=== PATIENT | male | born 1970 | race Caucasian/White ===

== ENCOUNTER → 2019-06-22 16:40 | Outpatient (CLI) | payer OTHER, SELFPAY ==
--- NOTE | ~2019-06-22 | XR_ITS ---
EXAMINATION: XR chest 2V EXAM DATE: 06/22/2019 17:03 INDICATION: Cough. TECHNIQUE: Frontal and lateral projections of the chest obtained and reviewed. Comparison is made to prior examination from 09/04/2011. FINDINGS: Moderate chronic hyperinflation. The lungs are clear. There are no pleural effusions. Th e cardiomediastinal silhouette is within normal limits. There is no pneumothorax suspected. There a re mild bony degenerative changes. Left clavicular fusion hardware. IMPRESSION: 1. No acute cardiopulmonary findings. 2. Hyperinflation. Reviewed, dictated and finalized at location A. UITING ASSISTANT
--- NOTE | ~2019-06-22 | XR_ITS ---
EXAMINATION: XR cervical spine 4-5V EXAM DATE: 06/22/2019 17:03 INDICATION: Cervical radiculopathy. TECHNIQUE: Cervical spine lateral and frontal projections. Cervicothoracic lateral projection, mouth odontoid projection. There is no prior study for comparison. FINDINGS: There is moderate disc disease C5-6 and 6-7, mild at C4-5 and C7-T1. Probably moderate lef t neural foraminal stenosis at C6-7, mild to moderate stenosis at the other C5-6 and 6-7 neural abiodun en. Mild cervical facet arthropathy. There is mild reversal of the normal cervical lordosis which may be positional or spasm. Left clavicular and mandibular fusion hardware. Lung apices are unremarkabl e. Prevertebral soft tissue and pre-dens space are within normal limits. IMPRESSION: 1. C5-6 and 6-7 moderate disc disease and some neural foraminal stenosis. 2. Reversal of normal cervical lordosis. Reviewed, dictated and finalized at location A. ICULTURAL SERVICES LIBRARIAN
== END ==
PROVIDERS: PCP Emergency Medicine; Visit Provider Emergency Medicine
DX: M50.323 Other cervical disc degeneration at C6-C7 level (principal); R05 Cough; R91.8 Other nonspecific abnormal finding of lung field
CPT/HCPCS: 71046; 72050

== ENCOUNTER 2019-08-09 09:59 | Outpatient (CLI) | payer OTHER, SELFPAY ==
--- NOTE | ~2019-08-09 | CT_ITS ---
EXAMINATION: CT lung screening DATE: 08/09/2019 10:33 INDICATION: Tobacco use, current smoker with 30 pack year history TECHNIQUE: Computed tomography (CT) of the chest was performed without intravenous contrast. The dose -length product (DLP) was 67.80 mGy-cm. Automated exposure control and iterative reconstruction techn ique were employed. COMPARISON: None FINDINGS: There is mild emphysema. There are multiple nodules of the left lower lobe which measure up to 7 mm and demonstrate an appearance favoring infection/inflammation. There is no pleural effusion or pneumothorax. The heart size is normal. There are no pathologically enlarged thoracic lymph nodes. Internal stabilization hardware is present in the right mandible and left clavicle. IMPRESSION: 1. Lung-RADS category 3: Probably benign. Followup with noncontrast low-dose chest CT in 6 months is recommended. Reviewed, dictated and finalized at location A. IMPRESSION: 1. Lung-RADS category 3: Probably benign. Followup with noncontrast low-dose ch est CT in 6 months is recommended.
== END 2019-08-09 10:00 | disposition home or self-care (01) ==
LOC: ANHIMG 10:03
PROVIDERS: PCP Emergency Medicine; Visit Provider Emergency Medicine
DX: Z12.2 Encounter for screening for malignant neoplasm of respiratory organs (principal); Z72.0 Tobacco use
CPT/HCPCS: G0297

== ENCOUNTER 2020-05-02 06:51 | Outpatient (NON) | payer SELFPAY ==
[2020-05-03 18:18] LABS: SARS-CoV-2 RNA PCR Negative
== END 2020-05-02 06:52 ==
PROVIDERS: PCP Emergency Medicine; Visit Provider Emergency Medicine
DX: R05 Cough (principal); Z20.822 Contact with and (suspected) exposure to COVID-19
CPT/HCPCS: C9803; U0003; U0005

== ENCOUNTER 2020-07-18 08:14 | Outpatient (CLI) | payer OTHER, SELFPAY ==
--- NOTE | ~2020-07-18 | CT_ITS ---
EXAMINATION: CT diagnostic chest wo con EXAM DATE: 07/18/2020 08:33 INDICATION: Lung nodule. TECHNIQUE: Spiral CT of the chest without contrast. Axial, coronal and sagittal images were reviewe d. Coronal maximum intensity pixel images of chest reviewed. The dose-length product (DLP) for this examination was 68.21 mGy-cm. The exposure was tailored according to patient size (auto mA exposure control), and iterative reconstruction (ASIR) was used as additional dose reduction technique. Benjamin rison is made to prior examination from 08/09/2019 . FINDINGS: Previously seen left lower lobe nodules have nearly resolved, nonspecific pneumonitis. The re are some scattered small cystic spaces, likely in locations of prior episodes of this. Small amoun t of new right basilar linear opacity likely atelectasis. There is mild emphysema and moderate hyperi nflation. There are no pleural or pericardial effusions. Tracheobronchial tree is patent with mild diffuse wall thickening most likely chronic bronchitis. There is no mediastinal, hilar or axillary lymphadenopathy. There is no pneumothorax. Narrow cardiac size from hyperinflated lungs. No evid ence of coronary arterial calcification. Upper abdomen is unremarkable. There is thoracic spondylo sis without osteoblastic or osteolytic lesions identified. Left clavicular plate. IMPRESSION: 1. Near resolution of previously seen left basilar nodules, nonspecific pneumonitis. 2. Moderate hyperinflation. Mild emphysema. 3. Diffuse mild bronchial wall thickening, chronic bronchitis. Reviewed, dictated and finalized at location A. IMPRESSION: 1. Near resolution of previously seen left basilar nodules, nonspecific pneumo nitis. 2. Moderate hyperinflation. Mild emphysema. 3. Diffuse mild bronchial wall thickening, chronic bronchitis.
== END 2020-07-18 08:15 | disposition home or self-care (01) ==
PROVIDERS: PCP Emergency Medicine; Visit Provider Emergency Medicine
DX: R91.1 Solitary pulmonary nodule (principal); M47.814 Spondylosis without myelopathy or radiculopathy, thoracic region; J43.9 Emphysema, unspecified
CPT/HCPCS: 71250

== ENCOUNTER 2023-08-15 12:22 | Emergency (ER) | payer OTHER, SELFPAY ==
[2023-08-15 12:53] VITALS: BP 133/79; PULSE 75; RESP 18; TEMP 36.9; O2SAT 98
--- NOTE | 2023-08-15 13:38 | ED.SKABFB ---
HPI - Skin/Abscess/Foreign Bdy General Chief complaint: Skin/Abscess/Foreign Body Stated complaint: Right Armpit Bump Time Seen by Provider: 08/15/23 13:38 Source: patient Mode of arrival: ambulatory Limitations: no limitations History of Present Illness HPI narrative: 58-year-old male presents with abscess to right axilla for 4-5 days. Patient reports difficulty sleeping at night due to pain to right axilla. Afebrile. No history of similar abscess. All systems reviewed and negative except as noted above. Related Data Allergies Allergy/AdvReac Type Severity Reaction Status Date / Time No Known Allergies Allergy Verified 08/15/23 12:26 Review of Systems Review of Systems: CONSTITUTIONAL: Denies fever, chills, or sweats. EYES: Denies visual changes, redness, or discharge. ENT: Denies rhinorrhea, congestion, sore throat, or otalgia. CARDIOVASCULAR: Denies chest pain, palpitations, or edema. RESPIRATORY: Denies cough or dyspnea. GASTROINTESTINAL: Denies abdominal pain, nausea, vomiting, or diarrhea. GENITOURINARY: Denies dysuria or hematuria. SKIN: Denies rash or itching. Reports pain, erythema, swelling to right axilla. MUSCULOSKELETAL: Denies back pain, joint pain, or myalgia. NEUROLOGIC: Denies headache, numbness, or weakness. PSYCHIATRIC: Denies anxiety or depression. All other systems reviewed are negative, except as documented in HPI. PMFSH Comments At time of signature, agree with nursing past medical, surgical, social and family history. There is no relevant family history pertinent to the presenting complaint. Exam Narrative: GENERAL: This is a well-nourished, well-developed patient, in no apparent distress. HEAD: normocephalic, atraumatic. EYES: PERRL. Sclera clear/white. Vision is grossly intact. EARS: External ears normal NOSE: External nose normal NECK: Neck supple, non-tender without lymphadenopathy, masses or thyromegaly. CARDIOVASCULAR: Regular rate and rhythm without murmurs, gallops, or rubs. RESPIRATORY: Clear to auscultation. Breath sounds equal bilaterally. No wheezes, rales, or rhonchi. SKIN: warm, Dry, intact with no suspicious lesions or rash, good texture and turgor. 2 cm diameter abscess to right axilla, fluctuant, tender on palpation. NEURO: awake, alert, and oriented to person, place and time. There were no obvious focal neurologic abnormalities. EXTREMITIES: No joint tenderness, effusion, or edema noted. Course Course Level of Care: Express Care Visit Vital Signs Vital signs: Vital Signs Temperature 36.9 C 08/15/23 12:53 Pulse Rate 75 08/15/23 12:53 Respiratory Rate 18 08/15/23 12:53 Blood Pressure 133/79 08/15/23 12:53 Pulse Oximetry 98 08/15/23 12:53 Oxygen Delivery Room Air 08/15/23 12:53 Temperature 36.9 C 08/15/23 12:53 Pulse Rate 75 08/15/23 12:53 Respiratory Rate 18 08/15/23 12:53 Blood Pressure 133/79 08/15/23 12:53 Pulse Oximetry 98 08/15/23 12:53 Oxygen Delivery Room Air 08/15/23 12:53 Procedures Abscess I/D upper extremity: Date of Incision: 08/15/23 Time of Incision: 13:45 Side (if applicable): right (axilla) Local Anesthetic: lidocaine 2% Amount of anesthesia used (mL): 6 Technique: incised with #11 blade Irrigation: No Packing used?: none I&D Results: Pus and Blood Complications: pain MDM - Skin/Abscess/Foreign Bdy MDM Narrative Medical decision making narrative: Patient is aware of diagnosis, understands and agrees to treatment plan. Anticipatory guidance given. Patient agrees to follow-up as directed and is aware of reasons to seek care at the emergency department. Portions of this record may have been created with voice recognition software Differential Diagnosis Differential diagnosis: Likely abscess of skin or subcutaneous tissue Discharge Plan Discharge Clinical Impression: Abscess of axilla, right Patient Disp
[2023-08-15] MEDS: LIDOCAINE HCL 2% PF INJ 5 ML VIAL 6 ML INFILTRATE (13:47)
== END 2023-08-15 14:00 | disposition home or self-care (01) ==
PROVIDERS: Emergency Provider Nurse Practitioner Family; PCP Emergency Medicine
DX: L02.411 Cutaneous abscess of right axilla (principal); J44.9 Chronic obstructive pulmonary disease, unspecified; Z86.73 Personal history of transient ischemic attack (TIA), and cerebral infarction without residual deficits
CPT/HCPCS: 10060; 99213; G0463

== ENCOUNTER 2023-11-14 15:03 | Emergency (ER) | payer OTHER, SELFPAY ==
--- NOTE | ~2023-11-14 | XR_ITS ---
EXAMINATION: XR chest 2V 11/14/2023 15:29 INDICATION: Shortness of breath and wheezing PROCEDURE: 2 view chest COMPARISON: No prior studies for comparison. FINDINGS: The lungs are clear. The cardiomediastinal silhouette is within normal limits. There are no pleural effusions. There is no pneumothorax suspected. IMPRESSION: 1: NO ACUTE CARDIOPULMONARY DISEASE. Reviewed, dictated and finalized at location B.
--- NOTE | 2023-11-14 15:05 | ED.URI ---
HPI - URI/Sore Throat General Chief Complaint: Upper Respiratory Infection Stated Complaint: Sinus infection hx:COPD Time Seen by Provider: 11/14/23 15:05 Source: patient Mode of arrival: ambulatory Limitations: no limitations History of Present Illness HPI Narrative: Edison is a 58-year-old male with a history of who presents to the clinic today with complaints of shortness of breath and a productive cough x2 weeks. He is has a Symbicort inhaler but he admits he has not used in a while. He relates he has a productive cough with green sputum. He states he called his PCP who referred him to the urgent care to get a breathing treatment. He denies any fever/chills or chest pain. MD elicited complaint: cough and other (Shortness of breath) Related Data Home Medications Medication Instructions Recorded Confirmed albuterol sulfate 90 mcg/actuation See Rx Instructions .Route .COMPLEX 11/14/23 11/14/23 aerosol inhaler (Ventolin HFA) Allergies Allergy/AdvReac Type Severity Reaction Status Date / Time No Known Allergies Allergy Verified 11/14/23 15:13 Review of Systems Review of Systems: Pertinent positives per HPI. Patient denies any fever, chills, rash, headache, visual changes, dizziness, chest pain, palpitations, nausea, vomiting, diarrhea, constipation, abdominal pain, or any urinary issues. [facility] Social History Social History (Updated 11/14/23 @ 15:23 by Jamil Augustine APRN) Smoking packs per day: 0.5 Smoking cigarettes per day: 10.0 Years smoked: 45 Smoking pack-years: 22.50 Smoking status: Current every day smoker Comments At the time of my signature, I reviewed and agree with the nursing past medical, surgical, social, and family history. There is no relevant family history pertinent to the patient complaint. Exam Narrative: General: Well-developed, well nourished, in no apparent distress Head: Normocephalic, atraumatic Eyes: Pupils equally round and reactive to light bilaterally, EOM intact, sclera and conjunctive clear, no discharge, lids normal Neck: Supple, trachea midline, no enlargement of anterior or posterior cervical nodes, no thyroid masses or goiter palpable. Cardio: Regular rate and rhythm, s1 and s2 normal, no murmur appreciated. Resp: Labored breathing, dyspnea at rest and on exertion, ronchi and inspiratory wheezes on auscultation Course Course Emergency Course: Portions of this record may have been created with voice recognition software. Level of Care: Express Care Visit Vital Signs Vital signs: Vital signs reviewed MDM - URI/Sore Throat MDM Narrative Medical decision making narrative: At the time of visit patient is resting comfortably on the exam table. Patient appears to be nontoxic. Diagnostics: Chest x-ray was negative for acute findings in the clinic today. Plan: I suspect the patient has sinobronchitis. Will send a prescription for Augmentin, prednisone, and albuterol inhaler. Prescriptions with the with patient. Supportive measures were discussed with the patient and they voiced understanding discharge instructions and agrees to treatment plan. Return precautions reviewed Differential Diagnosis Differential diagnosis: Likely upper respiratory infection, otitis media, sinusitis, viral infection, bronchitis, influenza, pharyngitis and other (COVID, pneumonia) Imaging Data Radiologist's impression: ITS Impressions Chest X-Ray 11/14/23 15:30 IMPRESSION: 1: NO ACUTE CARDIOPULMONARY DISEASE. Discharge Plan Discharge Clinical Impression: Sinobronchitis Patient Disposition: Home, Self-Care Condition: Stable Instructions: Antibiotic Form, Acute Bronchitis (ED), Rhinosinusitis (ED) Additional Instructions: Take prescription medications only as prescribed-prednisone, Augmentin, and albuterol inhaler May take Mucinex as needed for the cough. Increase fluids and stay well hydrated Tylenol/motrin for p
[2023-11-14 15:13] VITALS: BP 125/69; PULSE 88; RESP 16; TEMP 37.2; O2SAT 99
[2023-11-14] MEDS: IPRATROPIUM 0.5 MG/ALBUTEROL SULFATE 2.5 MG AMPUL.NEB 3 ML INHALATION (15:27)
== END 2023-11-14 15:52 | disposition home or self-care (01) ==
PROVIDERS: Emergency Provider Nurse Practitioner Family; PCP Emergency Medicine
DX: J32.9 Chronic sinusitis, unspecified (principal); J40 Bronchitis, not specified as acute or chronic; F17.210 Nicotine dependence, cigarettes, uncomplicated
CPT/HCPCS: 71046; 94640; 99213; G0463

== ENCOUNTER 2024-02-10 16:02 | Emergency (ER) | payer OTHER, SELFPAY ==
[2024-02-10 16:02] VITALS: BP 123/82; PULSE 89; RESP 24; TEMP 36.4; O2SAT 99
--- NOTE | 2024-02-10 16:10 | ECG_ITS ---
Test Date: 2024-02-10 16:14:22 Measurements Intervals [place] Rate: 78 P: 82 MA: 158 QRS: 85 QRSD: 97 T: 75 QT: 374 QTc: 426 Interpretive Statements SINUS RHYTHM POSSIBLE RIGHT ATRIAL ENLARGEMENT [0.25mV P WAVE] POSSIBLE LEFT ATRIAL ENLARGEMENT [-0.1mV P WAVE IN V1/V2] ARTIFACT LIMITS INTERPRETATION ABNORMAL ECG No previous ECG available for comparison Electronically Signed On 02-11-2024 10:14:46 CDT by Abhi Rodriguez M.D.
[2024-02-10 16:17] VITALS: RESP 24; O2SAT 98
--- NOTE | 2024-02-10 16:17 | PC.NURSE ---
pt place on 2L per N/C and EMS called.
[2024-02-10] MEDS: IPRATROPIUM 0.5 MG/ALBUTEROL SULFATE 2.5 MG AMPUL.NEB 3 ML INHALATION (16:21)
--- NOTE | 2024-02-10 16:21 | ED.SOB ---
HPI - SOB/Dyspnea General Chief Complaint: Shortness of Breath/Dyspnea Stated Complaint: COPD Time Seen by Provider: 02/10/24 16:10 Source: patient, RN notes reviewed and old records reviewed Mode of arrival: ambulatory Limitations: no limitations History of Present Illness HPI Narrative: 58-year-old male presents to the [facility] with shortness of breath, difficulty breathing, states something feels like it sitting on his chest. Patient has not been using his inhalers in a couple of months. States he does not want to see his doctor because he has a ?ass hole. ? Patient has a history of COPD, is a currently a smoker 1/2 -1 pack per day for 45 years Symptoms started when he woke up this morning has progressed throughout the day. Patient states it feels like something is sitting on his chest and he is having trouble catching his breath. Patient is tachypneic on arrival Onset (ago): hour(s) Treatment prior to arrival: none Related Data Home Medications Medication Instructions Recorded Confirmed albuterol sulfate 90 mcg/actuation See Rx Instructions .Route .COMPLEX 11/14/23 11/14/23 aerosol inhaler (Ventolin HFA) Allergies Allergy/AdvReac Type Severity Reaction Status Date / Time No Known Allergies Allergy Verified 11/14/23 15:13 Review of Systems Review of Systems: All systems reviewed & are unremarkable except as noted in HPI and below Constitutional: Constitutional: Reports no additional constitutional complaints ENT: Reports system reviewed and no additional complaints, except as documented Cardiovascular: Cardiovascular: Reports as per HPI, Denies chest pain and Reports dyspnea Respiratory: Respiratory: Reports as per HPI, Denies chest congestion, Reports cough, Reports dyspnea, Reports dyspnea on exertion and Reports wheezing Gastrointestinal: Gastrointestinal: Reports no additional gastrointestinal complaints, Denies abdominal pain, Denies nausea and Denies vomiting Musculoskeletal: Musculoskeletal: Reports no additional musculoskeletal complaints Integumentary/Breasts: Skin/Breast: Reports system reviewed and no additional complaints, except as docu PMFSH Past Medical History Medical History COPD (chronic obstructive pulmonary disease) Social History Social History Smoking packs per day: 1 Smoking cigarettes per day: 20.0 Years smoked: 45 Smoking pack-years: 45.00 Smoking status: Current every day smoker Gender identity (if verbalized by the patient): Male Comments At the time of my signature, I reviewed and agree with the nursing past medical, surgical, social, and family history. There is no relevant family history pertinent to the patient complaint. Exam Const: General: no acute distress, well developed, alert, ill appearing acutely and chronically, tired appearing, uncomfortable, well nourished and thin Nutritional Appearance: thin Orientation/consciousness: patient oriented x3 Limitations: no limitations HENMT: Head: normal to inspection Ears: hearing grossly normal bilaterally and external ears normal Face/Nose/Sinus: Normal external nose present, normal facial exam and face symmetric Face and sinus: normal facial exam and face symmetric Eyes: General: appearance normal, both eyes and all related structures Alignment and Position: alignment normal Periorbital: periorbital findings normal Neck: Neck: normal visual inspection, full ROM, no lymphadenopathy and no meningeal signs Chest: Chest palpation & inspection: normal inspection of the chest Resp: Effort & Inspection: able to speak in complete sentences and tachypneic Auscultation: wheezes expiratory wheezes and throughout and diminished lung sounds bilateral in the lower lung navarro Cardio: Rate: regular rate Skin: General skin exam: No normal color, no rashes or lesions noted and dry skin Lesions: no lesio
--- NOTE | 2024-02-10 16:23 | PC.NURSE ---
EMS here, report given.
--- NOTE | 2024-02-10 16:56 | PC.NURSE ---
Addendum entered by Annabella Sandoval RN 02/10/24 16:58: Check sat at 1602, computer would not let me change the time. Original Note: O2 saturation was 97% on Room air at registration desk.
[2024-02-10 17:23] VITALS: RESP 24; O2SAT 98
== END 2024-02-10 16:25 | disposition short-term general hospital (02) ==
PROVIDERS: Emergency Provider Nurse Practitioner; PCP Emergency Medicine
DX: R06.02 Shortness of breath (principal); R07.89 Other chest pain; J44.9 Chronic obstructive pulmonary disease, unspecified; F17.210 Nicotine dependence, cigarettes, uncomplicated
CPT/HCPCS: 93005; 94640; 99215; G0463

== ENCOUNTER 2024-02-10 16:43 | Emergency (ER) | payer OTHER, SELFPAY ==
--- NOTE | ~2024-02-10 | XR_ITS ---
XR chest 1V portable Ordering provider: Sara Ojeda MD History: 58 years Male with . melinda . Comparison: November 14, 2023 FINDINGS: MEDIASTINUM: The cardiac silhouette is not enlarged. LUNGS: No infiltrates, effusions or pneumothorax. OTHER: No free air under the diaphragm. Fixation of the left clavicle with plate and screws. IMPRESSION: No acute cardiopulmonary pathology. Reviewed, dictated and finalized at location A.
[2024-02-10 16:42] VITALS: BP 164/95; PULSE 66; RESP 21; TEMP 36.6; O2SAT 98
--- NOTE | 2024-02-10 16:46 | ECG_ITS ---
Test Date: 2024-02-10 16:54:30 Measurements Intervals [place] Rate: 71 P: 80 NM: 158 QRS: 80 QRSD: 104 T: 73 QT: 399 QTc: 434 Interpretive Statements SINUS RHYTHM NONDIAGNOSTIC INFERIOR Q-WAVES BORDERLINE ECG Compared to ECG 02/10/2024 16:14:22 No significant changes Electronically Signed On 02-11-2024 10:16:32 CDT by Abhi Rodriguez M.D.
[2024-02-10 16:47] VITALS: O2SAT 99
--- NOTE | 2024-02-10 16:52 | ED.SOB ---
HPI - SOB/Dyspnea General Chief Complaint: Shortness of Breath/Dyspnea Stated Complaint: SOB Time Seen by Provider: 02/10/24 16:45 History of Present Illness HPI Narrative: Patient started feeling shortness of breath and chest pressure this morning, does have a history of COPD but ran out of his medications. Related Data Allergies Allergy/AdvReac Type Severity Reaction Status Date / Time No Known Allergies Allergy Verified 02/10/24 16:51 Review of Systems Review of Systems: All systems reviewed & are unremarkable except as noted in HPI and below PMFSH Past Medical History Medical History COPD (chronic obstructive pulmonary disease) Social History Social History Smoking packs per day: 1 Smoking cigarettes per day: 20.0 Years smoked: 45 Smoking pack-years: 45.00 Smoking status: Current every day smoker Gender identity (if verbalized by the patient): Male Exam Narrative: EXAMINATION OF ORGAN SYSTEMS/BODY AREAS: Constitutional: Vital signs per nursing GENERAL:[No acute distress, non-toxic appearing.] HEAD: Normal with no signs of head trauma. EYES: EOMI, conjunctiva normal ENT: Hearing grossly intact LUNGS: Nonlabored breathing. HEART: [Regular rate and rhythm] ABD: [Soft], [nontender to palpation] EXT: Normal range of motion, no lower extremity swelling or tenderness SKIN: [No rashes or lesions.] NEURO: [Alert and oriented x 3. No gross focal sensory or strength deficits.] PSYCH: Normal affect Course Vital Signs Vital signs: Vital Signs Temperature 97.9 F 02/10/24 16:42 Pulse Rate 66 02/10/24 16:42 Respiratory Rate 21 H 02/10/24 16:42 Blood Pressure 164/95 H 02/10/24 16:42 Pulse Oximetry 98 02/10/24 16:42 Oxygen Delivery Room Air 02/10/24 16:42 Temperature 98.1 F 02/10/24 17:45 Pulse Rate 74 02/10/24 17:45 Respiratory Rate 18 02/10/24 17:45 Blood Pressure 134/80 02/10/24 17:45 Pulse Oximetry 98 02/10/24 17:45 Oxygen Delivery Room Air 02/10/24 16:47 MDM - SOB/Dyspnea MDM Narrative Medical decision making narrative: ED COURSE AND MEDICAL DECISION MAKIN-year-old male with acute dyspnea and wheezing likely due to acute COPD exacerbation based on history and exam. Patient is hemodynamically stable. Nebulizer treatments were given by EMS, after which patient now states that he is completely asymptomatic, the chest pressure has resolved, he is no longer having any symptoms. Steroids given here. I did initiate cards workup given his age and risk factors. EKG on my independent interpretation shows sinus rhythm rate 71, normal [place], QRS, QTC, axis, no ST elevations depressions; chest x-ray without obvious pneumonia. Patient monitored in the ED for a couple of hours and on reevaluation is feeling significantly better. No respiratory distress or accessory muscle use. Good air movement bilateral lungs. Prescriptions for [albuterol and steroid course] provided. Still asymptomatic. Patient is given strict return precautions and patient is discharged in stable/improved condition. Lab Data 02/10/24 17:00 02/10/24 17:00 Labs: Lab Results 02/10/24 Range/Units 17:00 WBC 8.6 (4.5-10.0) K/mm3 RBC 4.17 L (4.6-6.20) M/mm3 Hgb 12.7 L (14.0-18.0) g/dL Hct 38.4 L (42.0-52.0) % MCV 92.1 (80-100) fl MCH 30.5 (26-34) pg MCHC 33.1 (32-36) g/dl RDW 13.3 (11.5-14.5) % Plt Count 275 (150-375) k/mm3 MPV 10.2 (7.4-10.4) fl Immature Gran % (Auto) 0.2 (0-0.5) % Neut % (Auto) 62.2 (45.5-73.1) % Lymph % (Auto) 25.5 (18.3-44.2) % Mckenzie % (Auto) 9.3 H (2.6-8.5) % Eos % (Auto) 2.0 (0-4.4) % Baso % (Auto) 0.8 (0.2-1.2) % Lymph # (Auto) 2.19 (0.9-3.2) K/mm3 Mckenzie # (Auto) 0.8 H (0.1-0.6) K/mm3 Eos # (Auto) 0.2 (0-0.3) K/mm3 Baso # (Auto) 0.1 (0.0-0.1) K/mm3 Abs Immat
[2024-02-10] MEDS: AZITHROMYCIN 250 MG TABLET 500 MG PO (17:07)
[2024-02-10] MEDS: methylPREDNISolone SOD SUCC 40 MG VIAL IV PUSH (17:07)
[2024-02-10 17:12] LABS: Basophils Absolute Auto 0.1 K/mm3 (0.0-0.1); Basophils Percent Auto 0.8 % (0.2-1.2); Eosinophils Absolute Auto 0.2 K/mm3 (0-0.3); Hematocrit 38.4 % (42.0-52.0); Hemoglobin 12.7 g/dL (14.0-18.0); Immature Granulocyte Absolute 0.02 K/mm3 (0.00-0.031); Immature Granulocyte Percent A 0.2 % (0-0.5); Lymphocytes Absolute Auto 2.19 K/mm3 (0.9-3.2); Lymphocytes Percent Auto 25.5 % (18.3-44.2); Mean Corpuscular HGB Conc 33.1 g/dl (32-36); Mean Corpuscular Hemoglobin 30.5 pg (26-34); Mean Corpuscular Volume 92.1 fl (80-100); Mean Platelet Volume 10.2 fl (7.4-10.4); Monocytes Absolute Auto 0.8 K/mm3 (0.1-0.6); Monocytes Percent Auto 9.3 % (2.6-8.5); Neutrophils Absolute Auto 5.3 K/mm3 (1.3-6.7); Neutrophils Percent Auto 62.2 % (45.5-73.1); Platelet Count Result 275 k/mm3 (150-375); Red Blood Count 4.17 M/mm3 (4.6-6.20); Red Cell Distribution Width 13.3 % (11.5-14.5); White Blood Count 8.6 K/mm3 (4.5-10.0)
[2024-02-10 17:28] LABS: Anion Gap 5 mmol/L (4-12); Blood Urea Nitrogen 18 mg/dL (9-20); Calcium 8.5 mg/dL (8.4-10.2); Carbon Dioxide 30 mmol/L (22-30); Chloride 101 mmol/L (98-107); Estimated CRCL calculation 77 ml/min; Estimated Glomerular Filt Rate > 60; Glucose 119 mg/dL (65-110); Magnesium 1.7 mg/dL (1.6-2.3); Potassium 3.2 mmol/L (3.4-5.0); Sodium 136 mmol/L (137-145)
[2024-02-10 17:35] LABS: Troponin I < 0.012 ng/mL (0.000-0.034)
[2024-02-10 17:45] VITALS: BP 134/80; PULSE 74; RESP 18; TEMP 36.7; O2SAT 98
== END 2024-02-10 17:47 | disposition home or self-care (01) ==
PROVIDERS: Emergency Provider Emergency Medicine; PCP Emergency Medicine
DX: J44.1 Chronic obstructive pulmonary disease with (acute) exacerbation (principal); F17.210 Nicotine dependence, cigarettes, uncomplicated; R94.31 Abnormal electrocardiogram [ECG] [EKG]
CPT/HCPCS: 36415; 71045; 80048; 83735; 84484; 85025; 93005; 96374; 99284; A9270; J2919

== ENCOUNTER 2024-03-17 09:41 | Emergency (ER) | payer OTHER, SELFPAY ==
[2024-03-17] VITALS (7 sets, daily range): BP systolic 121–149; BP diastolic 83–94; PULSE 76–98; RESP 18–28; TEMP 36.1–36.6; O2SAT 96–100
--- NOTE | ~2024-03-17 | XR_ITS ---
EXAMINATION: XR chest 2V DATE: 03/17/2024 10:34 INDICATION: Shortness of breath. Productive cough. TECHNIQUE: Frontal and lateral views of the chest were obtained. COMPARISON: Chest single view 02/10/2024, chest CT 07/18/2020 FINDINGS: There is no pneumonia, pleural effusion, or pneumothorax. The heart size is normal. There i s plate and screw fixation of left clavicle. There is mild chronic anterior wedging of a midthoracic vertebral body. IMPRESSION: 1. No acute cardiopulmonary disease. Reviewed, dictated and finalized at location A. UE TECHNICIAN
--- NOTE | 2024-03-17 09:45 | ECG_ITS ---
Test Date: 2024-03-17 10:02:17 Measurements Intervals [place] Rate: 86 P: 83 IN: 161 QRS: 86 QRSD: 95 T: 81 QT: 354 QTc: 425 Interpretive Statements SINUS RHYTHM RIGHT ATRIAL ENLARGEMENT LEFT ATRIAL ENLARGEMENT MINIMAL Q WAVES- INFERIOR LEADS BORDERLINE ECG Compared to ECG 02/10/2024 16:54:30 NO SIGNIFICANT CHANGE Electronically Signed On 03-18-2024 11:53:39 CLINICAL PHARMACY SPECIALIST by Lemuel Mobley D.O.
--- NOTE | 2024-03-17 11:06 | ED.SOB ---
HPI - SOB/Dyspnea General Chief Complaint: Shortness of Breath/Dyspnea Stated Complaint: SOB, out of inhaler Time Seen by Provider: 03/17/24 11:06 Source: patient Mode of arrival: ambulatory Limitations: no limitations History of Present Illness HPI Narrative: This is a 58-year-old male With PMH of COPD who presents to the ED for chief complaint of shortness of breath x 2 days. Patient reports he ran out of his albuterol inhaler 2 days ago and is Symbicort 2 weeks ago. Reports that he quit smoking 3 weeks ago. He does not use oxygen at home. reports increasing cough with sputum production. Endorses shortness of breath but no chest pain. Denies fevers, chills, nausea, vomiting, numbness, weakness, back pain, leg swelling or palpitations. Related Data Allergies Allergy/AdvReac Type Severity Reaction Status Date / Time No Known Allergies Allergy Verified 02/10/24 16:51 Review of Systems Review of Systems: All systems as dictated in HPI PMFSH Past Medical History Medical History COPD (chronic obstructive pulmonary disease) Social History Social History Smoking packs per day: 1 Smoking cigarettes per day: 20.0 Years smoked: 45 Smoking pack-years: 45.00 Smoking status: Current every day smoker Gender identity (if verbalized by the patient): Male Exam Narrative: GENERAL: Well-appearing, well-nourished, and in no acute distress. HEAD: Normocephalic, atraumatic. EYES: PERRLA and EOMI. ENT: Nares clear, no rhinorrhea or epistaxis. Mucous membranes moist. Oropharynx without tonsillar hypertrophy exudate or other lesions. NECK: Supple. No adenopathy or masses. CHEST: Mild increased work of breathing. Able to speak in near full sentences. Bilateral wheezes heard throughout all lung navarro. 100% room air. HEART: Regular rate and rhythm. No murmur heard. Normal peripheral pulses. ABDOMEN: Soft, nontender, nondistended, normal active bowel sounds. MSK: Normal range of motion. No edema. SKIN: Warm, dry, no rash. NEURO: Alert and oriented x4. No focal deficits. PSYCH: Normal mood and affect. Course Reevaluation(s) Reevaluation #1: patient is feeling much improved after the hour long nebulizer. Objectively wheezing has decreased and his work breathing has decreased Date: 03/17/24 Time: 12:46 Vital Signs Vital signs: Vital Signs Temperature 97.0 F L 03/17/24 09:43 Pulse Rate 82 03/17/24 09:43 Respiratory Rate 18 03/17/24 09:43 Blood Pressure 139/86 03/17/24 09:43 Pulse Oximetry 98 03/17/24 09:43 Oxygen Delivery Room Air 03/17/24 09:43 Temperature 97.9 F 03/17/24 13:01 Pulse Rate 98 03/17/24 13:01 Respiratory Rate 20 03/17/24 13:01 Blood Pressure 139/84 03/17/24 13:01 Pulse Oximetry 100 03/17/24 13:01 Oxygen Delivery Room Air 03/17/24 11:35 MDM - SOB/Dyspnea MDM Narrative Medical decision making narrative: This is a 58-year-old male who presents to the ED for chief complaint of productive cough and shortness of breath. Has been out of his COPD inhalers for 2 weeks. Vitals showing initial tachypnea but otherwise normal. Exam is remarkable for the above. Patient appears to be in mild COPD exacerbation. No overt respiratory distress requiring NIPPV. He was started on Solu-Medrol, hour long albuterol treatment and antibiotics. Lab work is showing elevated white count of 14.9. CMP unremarkable. ABG unremarkable as well. Chest x-ray shows no acute findings. Clinically presentation is consistent with COPD exacerbation and possible pneumonia. He was given Rocephin and azithromycin here. He feels much better after the breathing treatment and would like to be discharged home. Rx for Augmentin doxycycline for home. Also given Rx for albuterol and Symbicort. Patient will be discharged in stable condition. Supportive measures discussed and return precautions given. Patient is understanding and agreeable with plan for discharge with PCP follow-up. Lab Data 03/17/24 11:09 03/17/24 11:09 Labs: Lab Results 03/17/24 Range/Units 11: WBC 14.9 H (4.5-10.0) K/mm3 RBC 4.45 L (4.6-6.20) M/mm3 Hgb 13.6 L (14.0-18.0) g/dL Hct 41.5 L (42.0-52.0) % MCV 93.3 (80-100) fl MCH 30.6 (26-34) pg MCHC 32.8 (32-36) g/dl RDW 13.4 (11.5-14.5) % Plt Count 380 H (150-375) k/mm3 MPV 9.0 (7.4-10.4) fl Immature Gran % (Auto) 5.3 H (0-0.5) % Neut % (Auto) 64.1 (45.5-73.1) % Lymph % (Auto) 18.1 L (18.3-44.2) % Butts % (Auto) 8.8 H (2.6-8.5) % Eos % (Auto) 2.8 (0-4.4) % Baso % (Auto) 0.9 (0.2-1.2) % Lymph # (Auto) 2.69 (0.9-3.2) K/mm3 Butts # (Auto) 1.3 H (0.1-0.6) K/mm3 Eos # (Auto) 0.4 H (0-0.3) K/mm3 Baso # (Auto) 0.1 (0.0-0.1) K/mm3 Abs Immat Gran (auto) 0.79 H (0.00-0.031) K/mm3 Absolute Neuts (auto) 9.5 H (1.3-6.7) K/mm3 Absolute Nucleated RBC 0.000 (0.0-0.012) K/mm3 Nucleated RBC % 0.0 (0.0-0.2) % Sodium 138 (137-145) mmol/L Potassium 4.5 (3.4-5.0) mmol/L Chloride 103 (98-107) mmol/L Carbon Dioxide 31 H (22-30) mmol/L Anion Gap 4 (4-12) mmol/L BUN 17 (9-20) mg/dL Creatinine 0.70 (0.7-1.3) mg/dL Estim Creat Clear Calc 85 ml/min Estimated GFR > 60 (59 - ) Glucose 89 (65-110) mg/dL Calcium 8.9 (8.4-10.2) mg/dL Total Bilirubin 0.3 (0.2-1.3) mg/dL AST 22 (17-59) U/L ALT 16 (6-50) U/L Alkaline Phosphatase 73 (38-126) U/L Total Protein 7.0 (6.3-8.2) g/dL Albumin 4.0 (3.5-5.1) g/dL ABG Data ABG results: 03/17/24 11:21 Puncture Site Right radial ABG pH 7.412 ABG pCO2 41.8 ABG pO2 76.9 L ABG PO2/FiO2 Ratio 3.66 ABG HCO3 26.0 ABG O2 Saturation 95.5 ABG O2 Content 18.8 ABG Base Excess 1.2 A-a Gradient 22.8 Oxyhemoglobin 95.3 Total Hemoglobin 14.0 O2 Delivery Device Room air O2 Liters/Min Not Reportable FiO2 21 Discharge Plan Discharge Clinical Impression: Acute exacerbation of chronic bronchitis Patient Disposition: Home, Self-Care Condition: Stable Instructions: Antibiotic Form, COPD (Chronic Obstructive Pulmonary Disease) (DC) Additional Instructions: Exam and imaging today are reassuring overall. However there is a possible pneumonia present. This is in the setting of a COPD exacerbation. Please refrain from using cigarettes. Use antibiotics as prescribed as well as inhalers as prescribed. If you have any new or worsening symptoms please return to the ER for further evaluation. Prescriptions: New albuterol sulfate 90 mcg/actuation HFA aerosol inhaler 2 puff inhalation QID PRN (Reason: shortness of breath or wheezing) Qty: 6.7 0RF budesonide-formoterol [Breyna] 160-4.5 mcg/actuation HFA aerosol inhaler 2 puff inhalation Q12H Qty: 10.2 0RF amoxicillin-pot clavulanate 875-125 mg tablet 1 tablet PO Q12H Qty: 14 0RF doxycycline hyclate 100 mg capsule 100 mg PO BID 7 Days Qty: 14 0RF No Action budesonide-formoterol [Symbicort] 160-4.5 mcg/actuation HFA aerosol inhaler 2 puff inhalation Q12H Qty: 10.2 0RF prednisone 20 mg tablet 40 mg PO DAILY 5 Days Qty: 10 0RF albuterol sulfate 90 mcg/actuation HFA aerosol inhaler 2 puff inhalation QID PRN (Reason: shortness of breath or wheezing) Qty: 8.5 0RF azithromycin 250 mg tablet 250 mg PO DAILY 4 Days Qty: 4 0RF Rx Instructions: start on day 2 of therapy Follow-up/Referrals: Jonathon Campuzano MD [Primary Care Provider] - Time of Disposition: 13:36
[2024-03-17 11:15] LABS: Basophils Absolute Auto 0.1 K/mm3 (0.0-0.1); Basophils Percent Auto 0.9 % (0.2-1.2); Eosinophils Absolute Auto 0.4 K/mm3 (0-0.3); Eosinophils Percent Auto 2.8 % (0-4.4); Hematocrit 41.5 % (42.0-52.0); Hemoglobin 13.6 g/dL (14.0-18.0); Immature Granulocyte Absolute 0.79 K/mm3 (0.00-0.031); Immature Granulocyte Percent A 5.3 % (0-0.5); Lymphocytes Absolute Auto 2.69 K/mm3 (0.9-3.2); Lymphocytes Percent Auto 18.1 % (18.3-44.2); Mean Corpuscular HGB Conc 32.8 g/dl (32-36); Mean Corpuscular Hemoglobin 30.6 pg (26-34); Mean Corpuscular Volume 93.3 fl (80-100); Monocytes Absolute Auto 1.3 K/mm3 (0.1-0.6); Monocytes Percent Auto 8.8 % (2.6-8.5); Neutrophils Absolute Auto 9.5 K/mm3 (1.3-6.7); Neutrophils Percent Auto 64.1 % (45.5-73.1); Platelet Count Result 380 k/mm3 (150-375); Red Blood Count 4.45 M/mm3 (4.6-6.20); Red Cell Distribution Width 13.4 % (11.5-14.5); White Blood Count 14.9 K/mm3 (4.5-10.0)
[2024-03-17] MEDS: IPRATROPIUM BR 0.02% INH SOLN 0.5 MG/2.5 ML VIAL 1 MG INHALATION (11:22)
[2024-03-17] MEDS: ALBUTEROL SULFATE NEB 2.5 MG/3 ML INH 10 MG INHALATION (11:22)
[2024-03-17 11:26] LABS: Alanine Aminotransferase 16 U/L (6-50); Alkaline Phosphatase 73 U/L (38-126); Anion Gap 4 mmol/L (4-12); Aspartate Amino Transferase 22 U/L (17-59); Bilirubin,Total 0.3 mg/dL (0.2-1.3); Blood Urea Nitrogen 17 mg/dL (9-20); Calcium 8.9 mg/dL (8.4-10.2); Carbon Dioxide 31 mmol/L (22-30); Chloride 103 mmol/L (98-107); Estimated CRCL calculation 85 ml/min; Estimated Glomerular Filt Rate > 60; Glucose 89 mg/dL (65-110); Potassium 4.5 mmol/L (3.4-5.0); Sodium 138 mmol/L (137-145)
[2024-03-17 11:32] LABS: Alveolar/Arterial O2 Gradient 22.8 mmHg; Base Excess ABG 1.2 mEq/l (+/-2.0); Fractional Inspired Oxygen 21 %; Oxygen Content ABG 18.8 %vol (16.0-22.0); Oxygen Saturation ABG 95.5 % (95.0-100.0); Oxyhemoglobin 95.3 % THb (90.0-100.0); PCO2 ABG 41.8 mmHg (35.0-45.0); PO2 ABG 76.9 mmHg (80.0-100.0); PO2 FiO2 Ratio Arterial Blood 3.66 %; pH ABG 7.412 (7.350-7.450)
[2024-03-17] MEDS: methylPREDNISolone SOD SUCC 125 MG VIAL IV PUSH (11:33)
[2024-03-17 11:34] LABS: Device ROOM AIR; Modified Allen's Test Pass; Site Drawn RIGHT RADIAL
[2024-03-17] MEDS: AZITHROMYCIN 500 MG/NS 250 ML 500 MG/250 ML BAG 250 MG IVPB (11:36)
== END 2024-03-17 13:45 | disposition home or self-care (01) ==
PROVIDERS: Emergency Medicine; Emergency Provider Physician Assistant; PCP Emergency Medicine
DX: J44.1 Chronic obstructive pulmonary disease with (acute) exacerbation (principal); Z87.891 Personal history of nicotine dependence; R94.31 Abnormal electrocardiogram [ECG] [EKG]
CPT/HCPCS: 36415; 36600; 71046; 80053; 82805; 85018; 85025; 93005; 94640; 96365; 96375; 99284; J0456; J0696; J2919

== ENCOUNTER 2024-06-04 13:53 | Emergency (ER) | payer OTHER, SELFPAY ==
--- NOTE | 2024-06-04 13:58 | ED.URI ---
HPI - URI/Sore Throat General Chief Complaint: Upper Respiratory Infection Stated Complaint: COPD Time Seen by Provider: 06/04/24 13:53 Source: patient Mode of arrival: ambulatory Limitations: no limitations History of Present Illness HPI Narrative: Patient is a 59-year-old male who presents with shortness of breath and COPD exacerbation. Patient has been on the Symbicort for 1 week. Patient has stopped smoking but started again 2 days ago. Patient was seen in the emergency department on March 17 for same symptoms. Patient was given antibiotics and inhalers at that time. Patient states he has a primary but has not seen him in a few months because he doesn't agree with what he wants to do. Denies any cough, fever, congestion, n/v/d. Patient states he is going to for to today for 1 week. Related Data Allergies Allergy/AdvReac Type Severity Reaction Status Date / Time No Known Allergies Allergy Verified 06/04/24 14:00 Review of Systems Review of Systems: All systems reviewed & are unremarkable except as noted in HPI and below Constitutional: Constitutional: Denies chills, Denies fatigue, Denies fever(s), Denies headache(s), Denies malaise and Denies weakness Eyes: Eyes: Denies blurry vision, Denies itchy eyes and Denies loss of vision ENT: Denies otalgia, Denies headache(s), Denies nasal congestion, Denies sinus pain and Denies sore throat Cardiovascular: Cardiovascular: Denies chest pain, Denies irregular heart rhythm and Denies dyspnea Respiratory: Respiratory: Denies cough and Reports dyspnea Gastrointestinal: Gastrointestinal: Denies abdominal pain, Denies diarrhea, Denies nausea and Denies vomiting Musculoskeletal: Musculoskeletal: Denies back pain, Denies myalgias and Denies arthralgias Integumentary/Breasts: Skin/Breast: Denies pruritus and Denies rash Neurologic: Denies headache(s), Denies loss of vision and Denies weakness Psychiatric: Psychiatric: Reports no additional psychiatric complaints Endocrine: Endocrine: Denies fatigue Allergic/Immunologic: Allergic/Immunologic: Denies itchy eyes PMFSH Past Medical History Medical History COPD (chronic obstructive pulmonary disease) Social History Social History Smoking packs per day: 1 Smoking cigarettes per day: 20.0 Years smoked: 45 Smoking pack-years: 45.00 Smoking status: Current every day smoker Gender identity (if verbalized by the patient): Male Comments At time of signature, agree with nursing past medical, surgical, social and family history. There is no relevant family history pertinent to the presenting complaint. Exam Const: General: cooperative, healthy appearing, comfortable, no acute distress and well nourished Nutritional Appearance: well nourished Orientation/consciousness: patient oriented x3 Limitations: no limitations HENMT: Head: normal to inspection, normocephalic and atraumatic Ears: hearing grossly normal bilaterally, external ears normal, TM's normal bilaterally, EAC's normal and no periauricular adenopathy Face/Nose/Sinus: Normal external nose present, Abnormal mucous membranes and turbinates present erythematous bilateral and diffuse, normal facial exam, sinuses nontender and face symmetric Face and sinus: normal facial exam, sinuses nontender and face symmetric Mouth: Yes Normal oral and palatal mucosa present, Yes lip normal, Yes tongue normal, Yes Normal salivary glands and ducts present, Yes oropharynx normal and Yes moist mucous membranes Teeth and gingiva: dentition normal Throat: posterior oropharynx normal, tonsils normal and uvula midline Eyes: General: appearance normal, both eyes and all related structures Alignment and Position: alignment normal and position normal Periorbital: periorbital findings normal Eyelids: eyelids normal Pupils: Equal, round and reactive pupils present Neck: Neck: normal visual inspection, full ROM, no lymphadenopathy and supple Chest: Chest palpation & inspection: normal inspection of the chest and normal palpation of entire chest wall Resp: Effort & Inspection: able to speak in complete sentences and tachypneic Auscultation: no crackles, no rales, no rhonchi, wheezes inspiratory wheezes and throughout and diminished lung sounds bilateral in the lower lung navarro Cardio: Rate: regular rate Rhythm: regular rhythm Heart sounds: S1 normal heart sound present and S2 normal heart sound present GI: Inspection: normal to inspection Skin: General skin exam: normal color and no rashes or lesions noted Neuro: General: patient oriented x3 and moves all extremities Cranial nerves: Yes Equal, round and reactive pupils present Speech: normal speech Gait exam (Neuro): Normal gait present Extrem: General: normal to inspection, full ROM and no edema Psych: Appearance: grossly normal and well kempt Mental Status: mental status grossly normal Speech and movement: Normal speech and movement present Affect: normal affect Attitude: cooperative Thought process: Normal thought process present Course Course Emergency Course: Discharge instructions reviewed with patient, as well as provided in writing per nursing staff. The instructions also include specific and strict return/GO TO THE ER as well as f/u information. All questions have been answered, and the patient deny any further questions with discharge and discharge plan. Portions of this record may have been created with voice recognition software Level of Care: Express Care Visit Reevaluation(s) Reevaluation #1: After breathing treatment patient's respirations are 16. No longer wheezing but still has decreased breath sounds in right lower lobe and coarse crackles and left lower lobe. Patient reports significant relief of symptoms Date: 06/04/24 Time: 14:45 Vital Signs Vital signs: Reviewed MDM - URI/Sore Throat MDM Narrative Medical decision making narrative: Giving patient a breathing treatment. Patient declines chest x-ray stating he is not having a productive cough. Discussed the importance of following up with PCP for further refills of inhalers. Will treat patient with antibiotics based on history and physical exam due to patient being at risk for pneumonia. Discussed smoking cessation with patient. Pt well hydrated appearing, in no respiratory distress, hemodynamically stable. Recommend supportive care. The patient is stable at time of discharge the clinical impression was discussed and the patient was given the opportunity to ask questions, which were addressed as completely as possible given the information available at present. Anticipatory guidance and return to care precautions were discussed and the importance of primary care follow-up was stressed and encouraged. The patient voiced understanding of the plan, indications to return, and the need for follow-up. Differential diagnosis considered: Pneumonia, COPD exacerbation, Cruz virus, strep pharyngitis, allergic rhinitis, upper respiratory tract infection, sinusitis, rhinosinusitis, nasopharyngitis. viral pharyngitis, otitis media, otitis externa, otitis effusion, foreign body, cerumen impaction, viral syndrome, and influenza.? Exam findings show no acute concerns or changes; patient is non-toxic appearing and is in no distress.? Patient is appropriate for outpatient treatment and follow-up.? Medical Records Attestation: I reviewed the patient's medical records. Discharge Plan Discharge Clinical Impression: COPD exacerbation Patient Disposition: Home, Self-Care Condition: Stable Instructions: COPD (Chronic Obstructive Pulmonary Disease) (ED) Additional Instructions: Take antibiotic as prescribed. Take steroids in the morning with food. Use inhaler with spacer as needed. Other symptomatic treatments include: -Alternate Tylenol and Motrin per package directions for fever or pain: Tylenol 650-1000mg by mouth every 4-6 hours. Do not exceed 4000mg in 24 hours. Advil (Ibuprofen) 600 mg by mouth every 6 hours. Do not exceed 2400mg in 24 hours. 8 AM: Tylenol 11 AM: Ibuprofen 2 PM: Tylenol 5 PM: Ibuprofen 8 PM: Tylenol 11 PM: Ibuprofen 2 AM: Tylenol 5 AM: Ibuprofen -Antihistamine medication such as Benadryl at night and Zyrtec/Claritin/Tameka during the day can help improve symptoms. -Use Flonase twice a day for 5 days then daily to help reduce the inflammation and dry up your sinuses. -You can also use Sudafed or Mucinex. Be sure to drink plenty of water with these medications at least 8 ounces with every dose and it is important to drink 8 to 10 glasses of water per day. Water is a natural decongestant -Eat and drink things that are easy to swallow, like tea or soup, or popsicles. -Oral rinses such as: Salt water gargles and/or may use topical anesthetic (eg. Chloraseptic spray) or lozenges to relieve dryness or throat pain). -Frequent hand washing or hand flitch hanger is one of the best ways to prevent spread of infection. -Using a vaporizer or humidifier at night will also help thin secretions and help with coughing up phlegm. -Follow up with primary care provider in 3-5 days if condition is not improving - For new or worsening symptoms go directly to the nearest ER Patient Language: Vietnamese Prescriptions: New albuterol sulfate 90 mcg/actuation HFA aerosol inhaler 2 puff inhalation QID PRN (Reason: shortness of breath or wheezing) Qty: 6.7 0RF (DME) Aerochamber MV Spacer See Rx Instructions .Route Qty: 1 0RF Rx Instructions: As directed budesonide-formoterol [Symbicort] 160-4.5 mcg/actuation HFA aerosol inhaler 2 puff inhalation Q12H Qty: 10.2 0RF prednisone 20 mg tablet 40 mg PO DAILY 5 Days Qty: 10 0RF amoxicillin 875 mg tablet 875 mg PO Q12H 7 Days Qty: 14 0RF No Action budesonide-formoterol [Symbicort] 160-4.5 mcg/actuation HFA aerosol inhaler 2 puff inhalation Q12H Qty: 10.2 0RF albuterol sulfate 90 mcg/actuation HFA aerosol inhaler 2 puff inhalation QID PRN (Reason: shortness of breath or wheezing) Qty: 8.5 0RF Follow-up/Referrals: Jonathon Campuzano MD [Primary Care Provider] - 3 Days Time of Disposition: 14:45
[2024-06-04 13:59] VITALS: BP 140/77; PULSE 99; RESP 22; TEMP 36.6; O2SAT 100
[2024-06-04] MEDS: IPRATROPIUM 0.5 MG/ALBUTEROL SULFATE 2.5 MG AMPUL.NEB 3 ML INHALATION (14:18)
[2024-06-04 14:20] VITALS: PULSE 99; RESP 22; O2SAT 100
== END 2024-06-04 14:50 | disposition home or self-care (01) ==
PROVIDERS: Emergency Provider Nurse Practitioner Family; PCP Emergency Medicine
DX: J44.1 Chronic obstructive pulmonary disease with (acute) exacerbation (principal); F17.210 Nicotine dependence, cigarettes, uncomplicated
CPT/HCPCS: 94640; 99213; G0463